=== PATIENT | female | born 1970 | race Caucasian/White ===

== ENCOUNTER 2018-09-29 20:01 | Emergency (ER) | payer BC ==
[2018-09-29] MEDS ORDERED: ACETAMINOPHEN 325 MG TABLET PO ONE (20:58)
[2018-09-29] MEDS ORDERED: IBUPROFEN 600 MG TABLET PO ONE (20:58)
--- NOTE | 2018-09-29 21:42 | ER Document Report ---
HPI - HPI Time Seen by Provider: 09/29/18 20:43 Pain Level: 4 Context: Patient is a 47-year-old female who presents to the emergency department with a chief complaint of right foot pain and left barnes pain. [place] was rushing to go up the escalator and hit her barnes and does not know what happened to her right foot, but states that she has some pain. She is able to walk, but states that the pain hurts too much. She is taking Motrin and Tylenol for her pain. Her last dose was yesterday. The pain in her right foot is mainly on the top lateral portion of her foot. - CONSTITUTIONAL Constitutional: DENIES: Fever, Chills - NEURO Neurology: DENIES: Weakness, Dizzinesss / Vertigo - CARDIOVASCULAR Cardiovascular: DENIES: Chest pain - RESPIRATORY Respiratory: DENIES: Trouble Breathing - GASTROINTESTINAL Gastrointestinal: DENIES: Abdominal Pain - REPRODUCTIVE Reproductive: DENIES: : - MUSCULOSKELETAL Musculoskeletal: REPORTS: Extremity pain - left barnes, rt foot - DERM Skin Color: Normal Skin Problems: None Past Medical History - Social History Smoking Status: Never Smoker Chew tobacco use (# tins/day): No Frequency of alcohol use: Social Drug Abuse: None Family History: Reviewed & Not Pertinent Patient has suicidal ideation: No Patient has homicidal ideation: No Renal/ Medical History: Denies: Hx Peritoneal Dialysis Past Surgical History: Reports: Hx Appendectomy, Hx Tonsillectomy Vertical Provider Document - CONSTITUTIONAL Exam Limitations: No Limitations - HEENT HEENT: Atraumatic - NECK Neck: Normal Inspection - RESPIRATORY Respiratory: Breath Sounds Normal, No Respiratory Distress - CARDIOVASCULAR Cardiovascular: Regular Rate, Regular Rhythm Pulses: Normal: Radial, Posterior tibial, Dorsalis pedis - GI/ABDOMEN Gastrointestinal: Abdomen Soft - MUSCULOSKELETAL/EXTREMETIES Musculoskeletal/Extremeties: FROM, Tender - left barnes and right foot, Eccymosis - right foot - NEURO Level of Consciousness: Awake, Alert, Appropriate Motor/Sensory: No Motor Deficit, No Sensory Deficit - DERM Integumentary: Warm, Dry Course - Re-evaluation Re-evalutation: 09/29/18 22:31 Patient's x-ray is negative for fracture. She states that she feels better with Motrin and Tylenol. She will be provided an Salvatore wrap and crutches to help with comfort. She is in agreement with this plan. I do not suspect the patient has compartment syndrome. Her capillary refill and pulses are normal. Verbal discharge instructions were given to the patient. They verbalized understanding. They are stable for discharge. - Vital Signs Vital signs: Temp Pulse Resp BP Pulse Ox 98.6 F 84 13 135/83 H 98 09/29/18 20:22 09/29/18 20:22 09/29/18 20:22 09/29/18 20:22 09/29/18 20:22 Discharge - Discharge Clinical Impression: Right foot pain, Pain in left barnes Condition: Stable Disposition: HOME, SELF-CARE Instructions: Use of Crutches ([facility]) Additional Instructions: You were seen today in the emergency department for left barnes pain and right foot pain. Your x-rays are normal. You may take ibuprofen 600 mg and acetaminophen 1000 mg every 6 hours as needed for your pain. Please make sure you rest your foot, elevate it, have an Salvatore wrap on it (but loosen it at times to let her foot breathe) in place ice to the area as needed. If you have worsening pain, or have any symptoms that are worrisome to you, these return to the emergency department.
--- NOTE | 2018-09-29 21:57 | RADIOLOGY REPORT (SQ) ---
KIDNEYS: THE LEFT TIBIA/FIBULA HISTORY: Joint pain. COMPARISON: None. FINDINGS: No acute fracture is seen. The joint spaces are preserved. The soft tissues are mildly swollen. IMPRESSION: No acute fracture or dislocation.
--- NOTE | 2018-09-29 22:03 | RADIOLOGY REPORT (SQ) ---
EXAM DESCRIPTION: XR FOOT 3 OR MORE VIEWS COMPLETED DATE/TME: 09/29/2018 20:57 CLINICAL HISTORY: 47 years, Female, trauma COMPARISON: None. NUMBER OF VIEWS: TECHNIQUE: LIMITATIONS: None. FINDINGS: No fracture or dislocation. There is dorsal soft tissue swelling. Mineralization of bone appears normal. IMPRESSION: No fracture or dislocation. copyright 2010 [employer] All Rights Reserved
[2018-09-29 22:57] VITALS: BP 130/70
== END 2018-09-29 22:58 | disposition home or self-care (01) ==
LOC: ER 20:01
DX: M79.671 Pain in right foot (principal); M79.672 Pain in left foot
CPT/HCPCS: 99283